=== PATIENT | male | born 1945 | race Caucasian/White ===

== ENCOUNTER 2016-10-29 22:02 | Inpatient (IN) | payer OTHER ==
[~2016-10-29] VITALS: Ht 170.2 cm; Wt 83.9 kg
[2016-10-29 22:02] VITALS: BP 97/57; PULSE 98; RESP 18; TEMP 97.2; O2SAT 96
[~2016-10-29 22:02] MED LIST: AMLO5TAB4 PO; ARMOUR THYROID PO; DEXL60CA3 PO; FURO-150 PO; PROP20TA7 PO; SPIR50TA PO; TRIA15CR4 TP
--- NOTE | 2016-10-29 22:02 | NUR ---
Patient to ER bed 1 to gown for evaluation. Side rails up. Report given to Sheron WILSON.
--- NOTE | 2016-10-29 22:13 | NUR ---
Pt brought in by BLS transport in stable condition. Pt sent here from [facility] for HgB 6.7 Hct 19.2. Pt denies any pain or dizziness at this time. Pt present very yellow to the skin and eyes. Pt has hx of liver cirrohosis w/ jaundice. -sob -chest pain. No acute distress noted at this time, will continue to monitor
--- NOTE | 2016-10-29 22:15 | NUR ---
ER at bedside examining patient.
[2016-10-29] MEDS ORDERED: NACL 0.9% 1,000 ML IV SCH (22:20)
[2016-10-29] MEDS ORDERED: ALPR0.2583 PO (22:22)
[2016-10-29] MEDS ORDERED: PENT400T2 PO (22:23)
[2016-10-29] MEDS ORDERED: THIA100T70 PO (22:24)
[2016-10-29] MEDS ORDERED: ACET-1010 PO (22:25)
[2016-10-29] MEDS ORDERED: THYR240T PO (22:26)
[2016-10-29] MEDS ORDERED: PREDEYE1% OP (22:35)
[2016-10-29] MEDS ORDERED: DEXT31GE3 PO (22:37)
[2016-10-29 23:00] LABS: RED CELL DISTRIBUTION WIDTH 28.6 % (9.0-15.0); WHITE BLOOD COUNT (AUTO) 7.8 K/uL (4.8-10.8)
[2016-10-29 23:04] LABS: BASOPHILS # (AUTO) 0.1 K/uL (0.0-0.2); BASOPHILS % (AUTO) 0.7 % (0.0-2.0); EOSINOPHILS # (AUTO) 0.1 K/uL (0.0-0.4); EOSINOPHILS % (AUTO) 1.5 % (0.0-4.0); HEMOGLOBIN 7.2 g/dL (14.0-18.0); LYMPHOCYTES # (AUTO) 0.9 K/uL (1.0-5.5); LYMPHOCYTES % (AUTO) 11.2 % (20.5-51.5); MEAN CORPUSCULAR HEMOGLOBIN 38 pg (27-31); MEAN CORPUSCULAR HGB CONC 35 % (32-36); MEAN CORPUSCULAR VOLUME 107 fL (79.0-98.0); MONOCYTES # (AUTO) 0.5 K/uL (0.0-1.0); MONOCYTES % (AUTO) 6.3 % (1.7-9.3); NEUTROPHILS # (AUTO) 6.2 K/uL (1.8-7.7); NEUTROPHILS % (AUTO) 80.3 % (40.0-70.0); PLATELET COUNT (AUTO) 62 K/uL (130-430)
[2016-10-29 23:10] LABS: RED BLOOD CELL COUNT(AUTO) 1.91 MIL/uL (4.2-6.2)
[2016-10-29 23:11] LABS: ANION GAP 12 (5-15); CALCIUM 9.3 mg/dL (8.4-11.0); CHLORIDE 101 mmol/L (98-107); CREATININE 1.59 mg/dL (0.55-1.30); GLUCOSE 106 mg/dL (70-99); SODIUM SERUM 135 mmol/L (136-145); UREA NITROGEN, BLOOD 73 mg/dL (8-21)
[2016-10-29 23:12] LABS: HEMATOCRIT 20.5 % (36-54)
[2016-10-29 23:16] LABS: INR 1.6 (0.80-1.20); PROTHROMBIN TIME 17.9 SECS (9.5-12.5)
[2016-10-29 23:17] LABS: ALANINE AMINOTRANSFERASE 48 U/L (12-78); ALBUMIN 2.6 g/dL (3.4-4.8); ASPARTATE AMINOTRANSFERASE 94 U/L (10-37); POTASSIUM 4.1 mmol/L (3.5-5.1); TOTAL PROTEIN, SERUM 6.7 g/dL (6.4-8.3)
[2016-10-29 23:23] LABS: TOTAL BILIRUBIN 16.7 mg/dL (0.0-1.0)
[2016-10-29] MEDS ORDERED: ACETAMINOPHEN 500 MG TABLET PO PRN (23:30)
[2016-10-29] MEDS ORDERED: [UNRECOGNIZED DRUG - OTHER] PO PRN (23:30)
[2016-10-29] MEDS ORDERED: ALPRAZolam 0.25 MG TABLET PO PRN (23:30)
--- NOTE | 2016-10-29 23:50 | NUR ---
ADMISSION NOTE Received patient from ER via gurney. Patient admitted with diagnosis of severe anemia. Patient is awake, alert, oriented X3 .
--- NOTE | 2016-10-29 23:50 | NUR ---
Patient will be admitted to care of Dr. No. Admitted to Med Surg unit. Will go to room 120-A. Belongings list completed. Summary report printed. Report given to STEVE Russell.
--- NOTE | 2016-10-29 23:51 | NUR ---
initial note pt. received aaox4, no s/s of sob or distress noted at this time. IV access noted to left forearm, no redness or swelling at the site. IV fluids infusing that were initiated in ER. Pt. has yellowing of the skin, and bilateral lower extremity pitting edema +2. MRSA sample of the nares was obtained, and will be sent to the lab. plan of care discussed with the pt., verbalizes understanding. plan to transfuse 2 units of PRBC this shift per MD order. will continue to monitor for any changes. safety and fall precautions in place, call light in reach, bed in lowest position.
[2016-10-30 00:03] VITALS: BP 110/61; PULSE 94; RESP 18; TEMP 98.6; O2SAT 98
[2016-10-30 00:14] VITALS: BP 110/61; PULSE 95; RESP 20; TEMP 98.6; O2SAT 98
--- NOTE | 2016-10-30 02:23 | NUR ---
rounds pt. resting in bed with eyes closed. chest rise and fall noted. will continue to monitor for any changes. safety and fall precautions in place. call light in reach, bed in lowest position.
--- NOTE | 2016-10-30 04:04 | NUR ---
rounds pt. resting with eyes closed, chest rise and fall noted. pillow under feet to reduce swelling. no s/s of sob or distress noted at this time. will continue to monitor. safety and fall precautions in place. call light in reach.
[2016-10-30 04:06] VITALS: BP 108/62; PULSE 91; RESP 20; TEMP 98.4; O2SAT 98
--- NOTE | 2016-10-30 05:21 | NUR ---
BT INITIATION: Consent signed per pt. agreeing to administration of blood. Information on unit of blood checked against patient wristband at bedside by two nurses. All information matches. Patient informed of potential complications associated with blood transfusion. Informed of possible transfusion reaction symptoms. Aware of need to notify nurse at once of itching, shortness of breath, flushing, feeling of impending doom, or other symptoms not previously present. Vital signs taken within 5 minutes prior to initiation of transfusion. RN will remain with patient for first 15 minutes of transfusion at which time vital signs will be re-assessed.
--- NOTE | 2016-10-30 05:36 | NUR ---
15 minutes post blood transfusion initiation no adverse reactions noted. VSS. pt. resting comfortably in bed. will continue to monitor.
--- NOTE | 2016-10-30 06:34 | NUR ---
Nutrition Update Arnol Scale 16 noted. Pt admitted for severe anemia. Diet: cardiac BMI: 29.0 kg/m2 RD to follow per nutrition care standards.
--- NOTE | 2016-10-30 06:56 | NUR ---
closing note pt. resting in bed with eyes closed. chest rise and fall noted. no s/s of sob or distress. blood transfusion infusing well with no adverse reactions noted. all necessary needs were met. safety and fall precautions were maintained. will endorse care to AM nurse. call light in reach, bed in lowest position.
--- NOTE | 2016-10-30 07:40 | NUR ---
NOTES RECEIVED PATIENT ON BED ASLEEP.BREATHING EVEN AND UNLABORED.NO ACUTE DISTRESS.WITH ONGOING BLOOD TRANSFUSION;TOLERATING WELL;NO SIGNS AND SYMPTOMS OF INFILTRATION.SAFETY AND FALL PRECAUTIONS IN PLACE.CALL LIGHT WITHIN REACH
--- NOTE | 2016-10-30 08:00 | NUR ---
BT INITIATION: Consent signed per PATIENT agreeing to administration of blood. Blood has been type and crossmatched. Blood sent from blood bank. Information on unit of blood checked against patient wristband at bedside by two nurses. All information matches. Patient or responsible green party informed of potential complications associated with blood transfusion. Informed of possible transfusion reaction symptoms. Aware of need to notify nurse at once of itching, shortness of breath, flushing, feeling of impending doom, or other symptoms not previously present. Vital signs taken within 5 minutes prior to initiation of transfusion. RN will remain with patient for first 15 minutes of transfusion at which time vital signs will be re-assessed.
--- NOTE | 2016-10-30 08:14 | NUR ---
DR SANTIAGO ROUNDS DISCUSSING PLAN OF CARE WITH THE PATIENT AT BEDSIDE, ORDERED FOR ABDOMINAL ULTRASOUND.
[2016-10-30] MEDS ORDERED: DOCUSATE SODIUM 100 MG CAPSULE PO PRN (08:15)
[2016-10-30] MEDS ORDERED: ONDANSETRON HCL 4 MG/2 ML VIAL IVP PRN (08:15)
[2016-10-30] MEDS ORDERED: MAGNESIUM SULFATE 50 ML IV PRN (08:15)
[2016-10-30] MEDS ORDERED: POTASSIUM CHLORIDE 10 MEQ TAB.PRT.SR PO PRN (08:15)
[2016-10-30] MEDS ORDERED: ZOLPIDEM TARTRATE 5 MG TABLET PO PRN (08:15)
[2016-10-30] MEDS ORDERED: MORPHINE 2 MG/ML INJ. SYRINGE IVP PRN (08:15)
[2016-10-30] MEDS ORDERED: LORazepam 2 MG/ML VIAL IVP PRN (08:15)
[2016-10-30] MEDS ORDERED: ACETAMINOPHEN 325 MG TABLET PO PRN (08:15)
[2016-10-30] MEDS ORDERED: PENTOXIFYLLINE 400 MG TABLET.SA (TRENtal) PO SCH (09:00)
--- NOTE | 2016-10-30 09:29 | NUR ---
Consult Order received for a consult with Dr Zheng for hyperbilirubinemia. Spoke with Jessica at the exchange. Will follow up as needed.
[2016-10-30] MEDS: THYROID 30 MG TABLET PO SCH (09:55)
[2016-10-30] MEDS: THIAMINE HCL 100 MG TABLET PO SCH (09:55)
--- NOTE | 2016-10-30 10:55 | NUR ---
NOTES CHECKED PATIENT;NO ACUTE DISTRESS
[2016-10-30 11:44] VITALS: BP 113/57; PULSE 82; RESP 19; TEMP 97.8; O2SAT 93
[2016-10-30] MEDS: NACL 0.9% 1,000 ML IV SCH ×2 (12:35→20:45)
--- NOTE | 2016-10-30 12:45 | NUR ---
NOTES SEEN PATIENT EATING;TOLERATING TEXTURE OF FOOD WELL
--- NOTE | 2016-10-30 15:40 | NUR ---
NOTES CHECKED PATIENT;NO ACUTE DISTRESS
[2016-10-30 15:53] VITALS: BP 98/61; PULSE 81; RESP 17; TEMP 97.1; O2SAT 93
[2016-10-30 15:59] LABS: BASOPHILS % (AUTO) 0.5 % (0.0-2.0); EOSINOPHILS # (AUTO) 0.1 K/uL (0.0-0.4); EOSINOPHILS % (AUTO) 1.5 % (0.0-4.0); HEMATOCRIT 25.3 % (36-54); HEMOGLOBIN 8.9 g/dL (14.0-18.0); LYMPHOCYTES % (AUTO) 17.6 % (20.5-51.5); MEAN CORPUSCULAR HEMOGLOBIN 36 pg (27-31); MEAN CORPUSCULAR HGB CONC 35 % (32-36); MONOCYTES # (AUTO) 0.3 K/uL (0.0-1.0); MONOCYTES % (AUTO) 5.2 % (1.7-9.3); NEUTROPHILS # (AUTO) 4.5 K/uL (1.8-7.7); NEUTROPHILS % (AUTO) 75.2 % (40.0-70.0); RED BLOOD CELL COUNT(AUTO) 2.45 MIL/uL (4.2-6.2); RED CELL DISTRIBUTION WIDTH 26.6 % (9.0-15.0); WHITE BLOOD COUNT (AUTO) 5.9 K/uL (4.8-10.8)
[2016-10-30 16:01] LABS: MEAN CORPUSCULAR VOLUME 103 fL (79.0-98.0)
[2016-10-30 16:02] LABS: PLATELET COUNT (AUTO) 50 K/uL (130-430)
[2016-10-30 16:12] LABS: IRON (SERUM) 39 mcg/dL (59-158); TOTAL IRON BIND. CAPACITY 135 ug/dL (250-450)
--- NOTE | 2016-10-30 18:50 | NUR ---
CLOSING NOTES PATIENT ON BED ASLEEP.BREATHING EVEN AND UNLABORED WITH 02 AT 2L/M VIA NASAL CANNULA.NO ACUTE DISTRESS.IVF INFUSING WELL;NO SIGNS AND SYMPTOMS OF INFILTRATION.SAFETY AND FALL PRECAUTIONS IN PLACE.CALL LIGHT WITHIN REACH.WILL ENDORSE TO NEXT SHIFT ACCORDINGLY
[2016-10-30 19:04] VITALS: BP 116/45; PULSE 81; RESP 18; TEMP 96.9; O2SAT 98
--- NOTE | 2016-10-30 19:04 | NUR ---
INITIAL NOTES RECVD PT IN BED,A/A/OX3. NO C/O PAIN AND NO SOB NOTED. IV NOTED TO L F/A G 20,NO INFILTRATE AND WITH GOOD BLOOD RETURN. WEAKNESS NOTED TO ALL EXTREMITIES. PLAN WAS DISCUSSED WITH PT AND AND VERBALIZED UNDERSTANDING. CALL LIGHT WITHIN REACH,WILL CONT TO MONITOR.
--- NOTE | 2016-10-30 20:30 | NUR ---
US TO ABD US TO ABD WAS PERFORMED @ BEDSIDE.TOLERATED WELL.WILL CONT TO MONITOR.
--- NOTE | 2016-10-30 20:56 | NUR ---
dr. page make round and see the pt. order US paracentesis. stated that the procedure can be done tomorrow or tuesday. inform primary rn.
--- NOTE | 2016-10-30 23:04 | NUR ---
ROUNDS PT SLEEPING COMFORTABLY @ THIS TIME.NO S/S OF PAIN AND NO DISTRESS NOTED.BED IN LOW POSITION WITH SIDE RAILS UP X3.CALL LIGHT WITHIN REACH,WILL CONT TO MONITOR.
[2016-10-31] VITALS (7 sets, daily range): BP systolic 49–124; BP diastolic 9–71; PULSE 62–83; RESP 16–21; TEMP 96.6–97.8; O2SAT 95–97
--- NOTE | 2016-10-31 01:04 | NUR ---
ROUNDS PT IS ASLEEP @ THIS TIME. NO S/S OF PAIN AND NO DISTRESS NOTED. BED IN LOW POSITION WITH SIDE RAILS UP X3.CALL LIGHT WITHIN REACH,WILL CONT TO MONITOR.
--- NOTE | 2016-10-31 03:04 | NUR ---
ROUNDS PT IS ASLEEP @ THIS TIME.NO C/O OF PAIN AND NO RESPI DISTRESS NOTED.BED IN LOW POSITION WITH SIDE RAILS UP X3.CALL LIGHT WITHIN REACH,WILL CONT TO MONITOR.
[2016-10-31 06:38] LABS: HEMATOCRIT 25.9 % (36-54); HEMOGLOBIN 8.8 g/dL (14.0-18.0); MEAN CORPUSCULAR HEMOGLOBIN 35 pg (27-31); MEAN CORPUSCULAR HGB CONC 34 % (32-36); MEAN CORPUSCULAR VOLUME 104 fL (79.0-98.0); PLATELET COUNT (AUTO) 51 K/uL (130-430); WHITE BLOOD COUNT (AUTO) 4.6 K/uL (4.8-10.8)
[2016-10-31 07:17] LABS: ANION GAP 10 (5-15); CHLORIDE 107 mmol/L (98-107); CREATININE 1.17 mg/dL (0.55-1.30); GLUCOSE 88 mg/dL (70-99); POTASSIUM 4.4 mmol/L (3.5-5.1); SODIUM SERUM 139 mmol/L (136-145); UREA NITROGEN, BLOOD 60 mg/dL (8-21)
--- NOTE | 2016-10-31 07:25 | NUR ---
FINAL ROUNDS PT IS SLEEPING @ THIS TIME. NO S/S OF PAIN AND NO DISTRESS NOTED. V/S ARE WNL. ALL NEEDS MET AND ANTICIPATED BY NOC NURSES. BED @ LOW POSITION AND SIDE RAILS UPX3 FOR SAFETY. CALL LIGHT WITHIN REACH, WILL CONT TO MONITOR.
--- NOTE | 2016-10-31 07:40 | NUR ---
INITIAL NOTES RECEIVED PATIENT ON BED ASLEEP.BREATHING EVEN AND UNLABORED.NO ACUTE DISTRESS.IVF INFUSING WELL;NO SIGNS AND SYMPTOMS OF INFILTRATION.SAFETY AND FALL PRECAUTIONS IN PLACE
[2016-10-31 07:58] LABS: BAND % (MANUAL) 4 % (0-6); BASOPHILS % (MANUAL) 0 % (0-2); EOSINOPHILS % (MANUAL) 0 % (0-7); LYMPHOCYTES % (MANUAL) 14 % (20-46); MONOCYTES % (MANUAL) 5 % (0-11)
[2016-10-31 08:00] LABS: RED CELL DISTRIBUTION WIDTH 27.6 % (9.0-15.0)
[2016-10-31] MEDS: THIAMINE HCL 100 MG TABLET PO SCH (09:09)
[2016-10-31] MEDS: THYROID 30 MG TABLET PO SCH (09:10)
[2016-10-31] MEDS: NACL 0.9% 1,000 ML IV SCH ×2 (09:11→21:39)
--- NOTE | 2016-10-31 10:40 | NUR ---
NOTES PATIENT ON BED AWAKE.NO ACUTE DISTRESS
--- NOTE | 2016-10-31 13:00 | NUR ---
NOTES CHECKED PATIENT;NEEDS ATTENDED TO
--- NOTE | 2016-10-31 14:40 | NUR ---
NOTES PATIENT'S IV LEAKING;CHECKED AND ASSESSED SITE;IV CATHETER PULLED OUT;REMOVED AND APPLIED PRESSURE DRESSING.WILL RE-INSERT Addendum: 10/31/16 at 1632 by Shima Chang RN NO SIGNS AND SYMPTOMS OF INFILTRATION
[2016-10-31 15:54] LABS: BILIRUBIN,URINE 1+ (NEGATIVE); BLOOD, URINE NEGATIVE (NEGATIVE); CLARITY/URINE CLEAR (CLEAR); GLUCOSE,URINE NEGATIVE (NEGATIVE); KETONES,URINE NEGATIVE (NEGATIVE); LEUKOCYTE ESTERASE ,URINE NEGATIVE (NEGATIVE); NITRITE, URINE NEGATIVE (NEGATIVE); PH,URINE 5.5 (5.0-8.0); PROTEIN URINE NEGATIVE (NEGATIVE); UROBILINOGEN,URINE 0.2 (0.2-1.0)
[2016-10-31 16:05] LABS: COLOR,URINE AMBER (YELLOW)
[2016-10-31 16:08] LABS: BACTERIA,URINE FEW /HPF (None Seen); RBC,URINE NONE SEEN /HPF (0-3); WBC,URINE 0-3 /HPF (0-3)
[2016-10-31 16:09] LABS: MUCUS,URINE None Seen /LPF (None Seen)
--- NOTE | 2016-10-31 16:29 | NUR ---
NOTES PATIENT LYING IN BED AWAKE;NO DISTRESS
--- NOTE | 2016-10-31 17:12 | NUR ---
NOTES CHARGE NURSE RE-INSERTED IV CATHETER TO LEFT FOREARM;SUCCESSFUL WITH FIRST ATTEMPT;WITH GOOD BLOOD RETURN ;PROCEDURE TOLERATED WELL
--- NOTE | 2016-10-31 18:39 | NUR ---
CLOSING NOTES PATIENT ON BED AWAKE.BREATHING EVEN AND UNLABORED.NO ACUTE DISTRESS.IVF INFUSING WELL;NO SIGNS AND SYMPTOMS OF INFILTRATION.SAFETY AND FALL PRECAUTIONS IN PLACE.CALL LIGHT WITHIN REACH.WILL ENDORSE TO NEXT SHIFT ACCORDINGLY
--- NOTE | 2016-10-31 19:15 | NUR ---
change of shift.pt's initial assessment.pt.presents stable status.no c/o pain,nausea,slight sob upon excertion.apprised pt.that snacks r available w/in the shift.iv fluids infusing.call light/telephone placed w/in pt's reach.
--- NOTE | 2016-10-31 19:45 | NUR ---
pt.assessed.v/s assessed.values w/in normal limits.blankets reapplied / pt's request.no other requests@this hour.call light w/in pt's reach.
--- NOTE | 2016-10-31 20:00 | NUR ---
pt.assessed.pt.repositioned.pt.requested blankets:2 warmed blankets provided.pt.requested pitcher of ice:have provided the ice.no other request@this hour.reminded the pt.that he is 2 submit 2 a us:guided paracentesis:10/22/16.call light placed w/in pt's reach.
--- NOTE | 2016-10-31 22:00 | NUR ---
pt.assessed.pt.repositioned.pt.presents quiescent affect;calm,asleep. no distress/discomfort manifested.call light placed w/in pt's reach.
--- NOTE | 2016-11-01 | NUR ---
pt.assessed.pt.repositioned.iv fluids assessed.v/s assessed.pt.presents quiesent affect;calm,asleep.no distress/discomfort manifested.call light placed w/in pt's reach.
[2016-11-01 00:13] VITALS: BP 118/66; PULSE 77; RESP 19; TEMP 97.8; O2SAT 96
--- NOTE | 2016-11-01 02:00 | NUR ---
pt.assessed.pt.repositioned.in fluids assessed.pt.presents quiescent affect;calm,asleep.no distress/discomfort manifested.call light placed w/in pt's reach.
[2016-11-01 04:00] VITALS: BP 116/62; PULSE 78; RESP 18; TEMP 98.2; O2SAT 97
--- NOTE | 2016-11-01 04:00 | NUR ---
pt.assessed.pt.presents quiescent affect;calm,asleep.no distress/discomfort manifested.iv fluids infusing. call light placed w/in pt's reach.
[2016-11-01 06:42] LABS: ALANINE AMINOTRANSFERASE 54 U/L (12-78); ANION GAP 6 (5-15); ASPARTATE AMINOTRANSFERASE 96 U/L (10-37); BILIRUBIN,DIRECT 5.9 mg/dL (0.0-0.3); CALCIUM 8.7 mg/dL (8.4-11.0); CHLORIDE 107 mmol/L (98-107); CREATININE 1.08 mg/dL (0.55-1.30); GLUCOSE 99 mg/dL (70-99); POTASSIUM 4.2 mmol/L (3.5-5.1); SODIUM SERUM 135 mmol/L (136-145); TOTAL BILIRUBIN 13.3 mg/dL (0.0-1.0); TOTAL PROTEIN, SERUM 5.6 g/dL (6.4-8.3); UREA NITROGEN, BLOOD 58 mg/dL (8-21)
[2016-11-01 07:08] LABS: HEMATOCRIT 22.9 % (36-54); HEMOGLOBIN 7.8 g/dL (14.0-18.0); MEAN CORPUSCULAR HEMOGLOBIN 35 pg (27-31); MEAN CORPUSCULAR HGB CONC 34 % (32-36); MEAN CORPUSCULAR VOLUME 103 fL (79.0-98.0); PLATELET COUNT (AUTO) 51 K/uL (130-430); RED BLOOD CELL COUNT(AUTO) 2.23 MIL/uL (4.2-6.2); RED CELL DISTRIBUTION WIDTH 28.2 % (9.0-15.0)
--- NOTE | 2016-11-01 07:15 | NUR ---
pt.assessed.pt.cleaned,pt.repositioned.pt.2 submit 2 us:guided paracentesis.11/01/16 / . has not provided the informed consent.consent printed unsigned.call light placed w/in pt's reach.
[2016-11-01 07:30] LABS: WHITE BLOOD COUNT (AUTO) 3.6 K/uL (4.8-10.8)
[2016-11-01 08:00] VITALS: BP 102/59; PULSE 66; RESP 18; TEMP 96; O2SAT 96
--- NOTE | 2016-11-01 08:00 | NUR ---
initial notes rec patient awake alert with infiltrated iv. hob elevated, resp easy and unlabored.noted abd to be distended, possible paracentesis will be done today. bed in low position and side rails up and locked. call light within reached and knows when to call for assistance.
[2016-11-01] MEDS: THIAMINE HCL 100 MG TABLET PO SCH (08:29)
[2016-11-01] MEDS: THYROID 30 MG TABLET PO SCH (08:29)
[2016-11-01 08:42] LABS: ATYPICAL LYMPHOCYTES % 0 % (0-0); BAND % (MANUAL) 3 % (0-6); BASOPHILS % (MANUAL) 0 % (0-2); EOSINOPHILS % (MANUAL) 1 % (0-7); LYMPHOCYTES % (MANUAL) 15 % (20-46); MONOCYTES % (MANUAL) 10 % (0-11)
[2016-11-01 12:00] VITALS: BP 95/50; PULSE 73; RESP 18; TEMP 98.1; O2SAT 96
--- NOTE | 2016-11-01 12:20 | NUR ---
rounds endorsed of care given to farrukh sanz. no acute distress noted.
--- NOTE | 2016-11-01 12:30 | NUR ---
Received patient received report from STEVE Vargas. patient is resting comfortably in bed. no s/s of distress or sob. call light in reach, bed in lowest position, and will continue to monitor.
[2016-11-01 14:08] VITALS: Ht 170.2 cm; Wt 83.9 kg
--- NOTE | 2016-11-01 14:30 | NUR ---
NOTE: PATIENT IS RESTING COMFORTABLY IN BED. NO S/S OF DISTRESS OR SOB. PATIENT IS ALERT AND ORIENTED. CALL LIGHT IN REACH, BED IN LOWEST POSITION, AND WILL CONTINUE TO MONITOR.
[2016-11-01 16:00] VITALS: BP 101/48; PULSE 86; RESP 18; TEMP 97.6; O2SAT 96
[2016-11-01] MEDS: NACL 0.9% 1,000 ML IV SCH (18:12)
--- NOTE | 2016-11-01 18:27 | NUR ---
CLOSING NOTE: PATIENT IS SITTING ON SIDE OF BED EATING DINNER. NO S/S OF DISTRESS OR SOB. PATIENT IS ALERT AND ORIENTED, ABLE TO EXPRESS NEEDS, AND ASK FOR ASSISTANCE. CALL LIGHT IN REACH, BED IN LOWEST POSITION, AND WILL GIVE REPORT TO NIGHT NURSE.
--- NOTE | 2016-11-01 20:00 | NUR ---
Opening Note Report received form Maria Elena WILSON. Patient is currently in stable condition. IV 20g LFA running NS@80ml/hr. Scds in place. Bed alarm is on. Call light is within reach. Instructed to use call light whenever in need of assistance.
[2016-11-01 20:05] VITALS: BP 98/51; PULSE 86; RESP 16; TEMP 97.3
--- NOTE | 2016-11-01 22:10 | NUR ---
Rounds Patient is in stable condition. Call light is within reach.
--- NOTE | 2016-11-02 00:13 | NUR ---
Rounds Patient is currently sleeping in bed. No signs of distress noted.
[2016-11-02 00:48] VITALS: BP 111/60; PULSE 70; RESP 16; TEMP 97.7; O2SAT 95
--- NOTE | 2016-11-02 02:15 | NUR ---
Rounds Patient was cleaned up and linen changed. Call light is within. Instructed to use call light whenever in need of assistance.
--- NOTE | 2016-11-02 04:20 | NUR ---
Rounds Patient is currently resting in bed. Call light is within reach.
[2016-11-02 05:27] VITALS: BP 121/70; PULSE 87; RESP 15; TEMP 97.5; O2SAT 94
[2016-11-02] MEDS: NACL 0.9% 1,000 ML IV SCH (05:29)
[2016-11-02 06:07] LABS: FOLATE (FOLIC ACID) 17.5 ng/mL (>3.0)
--- NOTE | 2016-11-02 06:51 | NUR ---
Closing Note Patient is in stable condition. Call light is within reach. Will give report to oncoming shift.
[2016-11-02 07:22] LABS: HEMATOCRIT 22.8 % (36-54); HEMOGLOBIN 8.1 g/dL (14.0-18.0); MEAN CORPUSCULAR HEMOGLOBIN 36 pg (27-31); MEAN CORPUSCULAR HGB CONC 35 % (32-36); MEAN CORPUSCULAR VOLUME 101 fL (79.0-98.0); RED BLOOD CELL COUNT(AUTO) 2.26 MIL/uL (4.2-6.2); RED CELL DISTRIBUTION WIDTH 27.8 % (9.0-15.0); WHITE BLOOD COUNT (AUTO) 3.5 K/uL (4.8-10.8)
[2016-11-02 07:36] LABS: PLATELET COUNT (AUTO) 48 K/uL (130-430)
[2016-11-02 07:38] LABS: ANION GAP 8 (5-15); CALCIUM 8.9 mg/dL (8.4-11.0); CHLORIDE 110 mmol/L (98-107); CREATININE 0.91 mg/dL (0.55-1.30); GLUCOSE 97 mg/dL (70-99); POTASSIUM 4.2 mmol/L (3.5-5.1); SODIUM SERUM 140 mmol/L (136-145); UREA NITROGEN, BLOOD 49 mg/dL (8-21)
--- NOTE | 2016-11-02 08:00 | NUR ---
Handoff rounds, assessment, vital signs pending. Patient tolerated breakfast well.
[2016-11-02 08:21] LABS: BASOPHILS % (MANUAL) 0 % (0-2); EOSINOPHILS % (MANUAL) 1 % (0-7); LYMPHOCYTES % (MANUAL) 20 % (20-46); MONOCYTES % (MANUAL) 5 % (0-11)
[2016-11-02] MEDS ORDERED: FUROSEMIDE 40 MG/4 ML VIAL IVP SCH (09:00)
[2016-11-02] MEDS ORDERED: SPIRONOLACTONE 50 MG TABLET (ALDACTONE) PO SCH (09:00)
[2016-11-02] MEDS: THIAMINE HCL 100 MG TABLET PO SCH (09:04)
[2016-11-02 09:16] VITALS: BP 120/68; PULSE 76; RESP 16; TEMP 97.2; O2SAT 97
[2016-11-02] MEDS: THYROID 30 MG TABLET PO SCH (09:20)
--- NOTE | 2016-11-02 10:21 | NUR ---
DISCHARGE PLANNING DC order back to SNF. Faxed referral to [facility] [phone] [phone]. Will follow up on bed assignment. Addendum: 11/02/16 at 1203 by Thao Burgos DP spoke with Kary in admitting patient assigned to room 215B RN to report [phone], bed available anytime. STEVE Oden made aware. Called [facility] spoke with Darvin arranged [facility] transport pick up and delivery driver soonest available at 1:30pm. Placed transportation packet in nurses station.
--- NOTE | 2016-11-02 10:30 | NUR ---
Rounds to patient. Needs met at this time. Working with physical therapy and requesting assist with personal calls.
[2016-11-02 10:57] LABS: APPEARANCE,SPUN,BODY FLUID CLEAR (CLEAR); BF APPEARANCE UNSPUN HAZY (CLEAR); BODY FLUID COLOR DARK YELLOW (LT YELLOW); SOURCE/TYPE ,BODY FLUID ASCITES
[2016-11-02 10:58] LABS: BODY FLUID TOTAL VOLUME 2000 mL
[2016-11-02 11:02] VITALS: BP 120/68; PULSE 76; RESP 16; TEMP 97.2; O2SAT 97
[2016-11-02 11:23] VITALS: BP 120/64; PULSE 80; RESP 19; TEMP 97.9; O2SAT 95
--- NOTE | 2016-11-02 12:30 | NUR ---
Patient rounds. Reposition. Assist back to bed 140ml drained from kurtz catheter.
--- NOTE | 2016-11-02 13:30 | NUR ---
D/C Patient Patient given medication reconciliation form and D/C instructions. Exit Care provided. Patient verbalized understanding. MD discussed with patient the results and treatment provided. Ambulatory with steady gait for discharge to home. Patient in stable condition, ID band removed. IV catheter removed, intact and dressing applied, no active bleeding. No Rx given. Patient educated on pain management. All belongings sent with patient. Addendum: 11/05/16 at 1327 by Akshat Piedra RN entry in error: d/c snf, not home Addendum: 11/05/16 at 1330 by Akshat Piedra RN entry in error: ambulation status, chair bound
[2016-11-02 15:03] LABS: FERRITIN 1088 ng/mL (30-400)
[2016-11-02 15:26] LABS: EOSINOPHIL, BODY FLUID 0 %; LYMPHOCYTES, BODY FLUID 43 %; MONOCYTES,BODY FLUID 50 %; NEUTROPHIL, BODY FLUID 7 %; RBC, BODY FLUID 4589 /uL; WBC, BODY FLUID 272 /uL
[2016-11-02 15:38] LABS: BODY FLUID GLUCOSE 126 mg/dL
== END 2016-11-02 13:30 | DRG 682 ==
LOC: SED 22:02 → SMU 23:35
PROVIDERS: ADMIT General Practice; ATTEND General Practice
PROC: 30233N1 Transfusion of Nonautologous Red Blood Cells into Peripheral Vein, Percutaneous Approach (ICD-10-PCS; principal; 2016-10-30)
PROC: 0W9G3ZZ Drainage of Peritoneal Cavity, Percutaneous Approach (ICD-10-PCS; 2016-11-01)
PROC: BW40ZZZ Ultrasonography of Abdomen (ICD-10-PCS; 2016-11-01)
DX: N17.0 Acute kidney failure with tubular necrosis (principal); E43 Unspecified severe protein-calorie malnutrition; D68.4 Acquired coagulation factor deficiency; D50.9 Iron deficiency anemia, unspecified; E03.9 Hypothyroidism, unspecified; D69.6 Thrombocytopenia, unspecified; K70.30 Alcoholic cirrhosis of liver without ascites; R26.81 Unsteadiness on feet; K21.9 Gastro-esophageal reflux disease without esophagitis; I10 Essential (primary) hypertension; Z51.5 Encounter for palliative care; Z68.29 Body mass index [BMI] 29.0-29.9, adult; Z79.899 Other long term (current) drug therapy
CPT/HCPCS: 36415; 49083; 71010; 76700-TC; 80048; 80053; 80076; 81000-TC; 82042; 82607; 82728; 82746; 82947-TC; 83540-TC; 83550-TC; 83605; 83735-TC; 84157-TC; 85007; 85025; 85027; 85610-TC; 85730-TC; 86886; 86900; 86901; 86920; 87040-TC; 87081; 88108; 89051-TC; 89060-TC; 93005; 96360; 97110-GP; 97116-GP; 97530-GP; 99285; C1729; J1940; J7030; J7050; P9021